=== PATIENT | male | born 1995 | race African-American/Black ===

== ENCOUNTER 2022-10-05 09:34 | Emergency (ER) | payer BC, SELFPAY ==
[2022-10-05] MEDS ORDERED: Lidocaine 1% w/Epinephrine 1:100K 20 ML VIAL ONE (10:12)
[2022-10-05] MEDS ORDERED: Boostrix 0.5 ML (Tdap) VIAL (>/=7 yrs of age) ONE (10:22)
[2022-10-05] MEDS ORDERED: Triple Antibiotic Oint 1 GM Packet ONE (11:07)
[2022-10-05] MEDS ORDERED: Ibuprofen 200 MG TAB ONE (11:31)
== END 2022-10-05 11:33 | disposition home or self-care (01) ==
LOC: ERS 09:34
DX: S51.811A Laceration without foreign body of right forearm, initial encounter (principal); F17.210 Nicotine dependence, cigarettes, uncomplicated; W29.0XXA Contact with powered kitchen appliance, initial encounter; Z23 Encounter for immunization
CPT/HCPCS: 12002; 90471; 90715

== ENCOUNTER 2022-10-26 15:50 | Emergency (ER) | payer SELFPAY | END 2022-10-26 16:04 | disposition home or self-care (01) | LOC: ERS 15:50 | DX: S51.812D Laceration without foreign body of left forearm, subsequent encounter (principal); F17.210 Nicotine dependence, cigarettes, uncomplicated ==